=== PATIENT | female | born 1975 | race Caucasian/White ===

== ENCOUNTER 2021-04-24 09:29 | Outpatient (CLI) | payer OTHER, SELFPAY ==
--- NOTE | 2021-04-24 09:36 | MM_ITS ---
WS: [id number] BILATERAL DIGITAL SCREENING MAMMOGRAPHY WITH CAD CLINICAL INFORMATION: SCREENING HISTORY: Screening mammogram. No current complaints. COMPARISON: TECHNIQUE: Bilateral CC and MLO views. FINDINGS: Scattered fibroglandular densities bilaterally. No suspicious focal mass, asymmetry, calcifications, or architectural distortion. No evidence of malignancy. MM/[place] [id number] IMPRESSION: BI-RADS: 1-Negative FOLLOW UP: 1 Year Follow-up Recommend return to annual screening mammography.
== END 2021-04-24 09:30 | disposition home or self-care (01) ==
LOC: RADSHAW 09:34
PROVIDERS: Family Provider Family Medicine; PCP Family Medicine; Visit Provider Family Medicine
DX: Z12.31 Encounter for screening mammogram for malignant neoplasm of breast (principal)
CPT/HCPCS: 77067

== ENCOUNTER 2021-09-27 08:29 | Outpatient (CLI) | payer OTHER, SELFPAY | END 2021-09-27 08:30 | disposition home or self-care (01) | PROVIDERS: PCP Family Medicine; Visit Provider Family Medicine | DX: R50.9 Fever, unspecified (principal) | CPT/HCPCS: 36415; 87040 ==

== ENCOUNTER 2021-12-27 12:21 | Outpatient (CLI) | payer OTHER, SELFPAY ==
--- NOTE | 2021-12-27 | XR_ITS ---
WS: [id number] Exam: XR chest 2V* [id number] Date/Time of Exam: 12/27/2021 12:29 PM Reason For Exam: COUGH Comparison 12/27/2021. Findings: The lungs are clear and fully expanded. Costophrenic angles are sharp. No infiltrates. Bronchovascula r relief appears normal. Cardiac silhouette is unremarkable. Bony elements are intact. XR/XR chest 2V* [id number] IMPRESSION: Unremarkable chest radiograph.
== END 2021-12-27 12:22 | disposition home or self-care (01) ==
LOC: RAD 12:24
PROVIDERS: PCP Family Medicine; Visit Provider Family Medicine
DX: R05.9 Cough, unspecified (principal)
CPT/HCPCS: 71046

== ENCOUNTER 2022-04-24 12:51 | Outpatient (CLI) | payer OTHER, SELFPAY ==
--- NOTE | 2022-04-24 13:04 | MM_ITS ---
WS: [id number] BILATERAL 3D TOMOSYNTHESIS DIGITAL SCREENING MAMMOGRAPHY WITH CAD CLINICAL INFORMATION: SCREENING HISTORY: Screening mammogram. No current complaints. COMPARISON: April 24, 2021 TECHNIQUE: Bilateral CC and MLO views. FINDINGS: Scattered fibroglandular densities bilaterally. No suspicious focal mass, asymmetry, calcifications, or architectural distortion. No evidence of malignancy. MM/[place] [id number] IMPRESSION: BI-RADS: 1-Negative FOLLOW UP: 1 Year Follow-up Recommend return to annual screening mammography.
== END 2022-04-24 12:52 | disposition home or self-care (01) ==
LOC: RAD 12:52
PROVIDERS: PCP Family Medicine; Visit Provider Family Medicine
DX: Z12.31 Encounter for screening mammogram for malignant neoplasm of breast (principal)
CPT/HCPCS: 77063; 77067

== ENCOUNTER → 2023-03-16 12:25 | Outpatient (BNVA) | payer OTHER, SELFPAY | PROVIDERS: PCP Family Medicine; Visit Provider Family Medicine | DX: E03.9 Hypothyroidism, unspecified (principal); N92.6 Irregular menstruation, unspecified; R10.2 Pelvic and perineal pain | CPT/HCPCS: 80053; 83001; 84439; 84443; 84702; 85025; 87624 ==

== ENCOUNTER 2023-03-23 13:58 | Outpatient (CLI) | payer OTHER, SELFPAY ==
--- NOTE | 2023-03-23 14:00 | US_ITS ---
WS: [id number] US pelv w/transvag [id number] HISTORY: Abnormal uterine bleeding, pelvic pain COMPARISON: None available. Uterus: 10.3 cm x 5.9 cm x 5.0 cm. Enlarged anteverted uterus. No fibroid or mass. Endometrium: Mildly thickened heterogeneous endometrium. No mass or increased vascularity. 1.7 cm. Right ovary: 3.6 cm x 4.2 cm x 3.5 cm. Normal size and vascularity, no cystic or solid masses. RIGHT ovarian cyst 2.9 x 3.0 x 2.9 cm. Left ovary: 3.3 cm x 3.0 cm x 2.1 cm. Normal size and vascularity, no cystic or solid masses. No free fluid in the cul-de-sac. US/US pelv w/transvag [id number] IMPRESSION: 1. Mildly heterogeneous endometrium. Normal size. No mass or increased vascula rity. 2. Mildly enlarged uterus. 3. No fibroids. 4. Small RIGHT ovarian cyst.
== END 2023-03-23 13:59 | disposition home or self-care (01) ==
LOC: RAD 14:03
PROVIDERS: PCP Family Medicine; Visit Provider Family Medicine
DX: N93.9 Abnormal uterine and vaginal bleeding, unspecified (principal); R10.2 Pelvic and perineal pain; N85.2 Hypertrophy of uterus; N83.201 Unspecified ovarian cyst, right side
CPT/HCPCS: 76830; 76856; 80053; 83001; 84439; 84443; 84702; 85025; 87624

== ENCOUNTER 2023-04-30 08:14 | Outpatient (CLI) | payer OTHER, SELFPAY ==
--- NOTE | 2023-04-30 08:30 | MM_ITS ---
WS: [id number] SCREENING DIGITAL TOMOSYNTHESIS MAMMOGRAM WITH CAD HISTORY: SCREENING COMPARISON: 04/24/2022, 04/24/2021. Bilateral CC and MLO with tomosynthesis views submitted. Synthetic mammography reviewed. Computer aid ed detection analyzed. Breast composition: There are scattered areas of fibroglandular density. No suspicious masses, microc alcifications or architectural distortion. MM/[place] [id number] IMPRESSION: BI-RADS: 1-Negative FOLLOW UP: 1 Year Follow-up
== END 2023-04-30 08:15 | disposition home or self-care (01) ==
LOC: RAD 08:25
PROVIDERS: PCP Family Medicine; Visit Provider Family Medicine
DX: Z12.31 Encounter for screening mammogram for malignant neoplasm of breast (principal)
CPT/HCPCS: 77063; 77067

== ENCOUNTER 2024-05-02 08:00 | Outpatient (CLI) | payer OTHER, SELFPAY ==
--- NOTE | 2024-05-02 08:04 | MM_ITS ---
WS: [id number] SCREENING DIGITAL TOMOSYNTHESIS MAMMOGRAM WITH CAD HISTORY: SCREENING COMPARISON: 04/30/2023, 04/24/2022 and 04/24/2021 Bilateral CC and MLO with tomosynthesis views submitted. Synthetic mammography reviewed. Computer aid ed detection analyzed. Breast composition: There are scattered areas of fibroglandular density. No suspicious masses, microc alcifications or architectural distortion. Benign calcification in the anterior LEFT breast. MM/[place] [id number] IMPRESSION: BI-RADS: 2-Benign FOLLOW UP: 1 Year Follow-up
== END 2024-05-02 08:01 | disposition home or self-care (01) ==
PROVIDERS: PCP Family Medicine; Visit Provider Family Medicine
DX: Z12.31 Encounter for screening mammogram for malignant neoplasm of breast (principal)
CPT/HCPCS: 77063; 77067

== ENCOUNTER 2025-02-20 06:14 | Outpatient (CLI) | payer OTHER, SELFPAY ==
--- NOTE | 2025-02-20 06:34 | USR_ITS ---
PROCEDURE INFORMATION: Exam: US Pelvis, Complete, Non-Obstetric Exam date and time: 02/20/2025 6:37 AM Age: 49 years old Clinical indication: Condition or disease; Other: Menometorrhagia; Additional info: Menometorrhagia, transvaginal US if needed for better visualization TECHNIQUE: Imaging protocol: Transabdominal pelvic nonobstetric ultrasound. Complete exam. Real time ultrasound with image documentation. COMPARISON: US pelv w/transvag [id number] 03/23/2023 2:21 PM FINDINGS: Uterus: Uterus is normal. Small cervical cysts. Endometrial stripe is heterogeneous. It is 11 mm in thickness. Right ovary/adnexa: Ovary is normal. No mass. Normal blood flow. Left ovary/adnexa: Obscured. Intraperitoneal space: No intraperitoneal fluid. Urinary bladder: Normal. US/US pelv w/transvag [id number] IMPRESSION: Slightly thickened and heterogeneous endometrium without focal abnormality.
== END 2025-02-20 06:15 | disposition home or self-care (01) ==
PROVIDERS: PCP Family Medicine; Visit Provider Family Medicine
DX: N92.1 Excessive and frequent menstruation with irregular cycle (principal); N88.8 Other specified noninflammatory disorders of cervix uteri
CPT/HCPCS: 76830; 76856

== ENCOUNTER 2025-05-03 07:57 | Outpatient (CLI) | payer BC, OTHER, SELFPAY ==
--- NOTE | 2025-05-03 08:02 | MM_ITS ---
WS: [id number] BILATERAL SCREENING DIGITAL TOMOSYNTHESIS MAMMOGRAM WITH CAD HISTORY: SCREENING COMPARISON: 05/02/2024, 04/30/2023 and 04/24/2022 Bilateral CC and MLO views with tomosynthesis and synthetic mammography submitted. Computer aided detection analyzed. Breast composition: There are scattered areas of fibroglandular density. No suspicious masses, microcalcifications or architectural distortion. Benign calcification anterior LEFT breast. MM/MM scr [place] tomosynthesis [id number] IMPRESSION: BI-RADS: 2 - Benign. FOLLOW UP: 1 Year Follow-up
== END 2025-05-03 07:58 | disposition home or self-care (01) ==
LOC: RAD 07:59
PROVIDERS: PCP Family Medicine; Visit Provider Family Medicine
DX: Z12.31 Encounter for screening mammogram for malignant neoplasm of breast (principal); R92.323 Mammographic fibroglandular density, bilateral breasts; R92.1 Mammographic calcification found on diagnostic imaging of breast
CPT/HCPCS: 77063; 77067

== ENCOUNTER 2025-06-06 05:47 | Day surgery (SDC) | payer BC, OTHER, SELFPAY ==
[2025-06-06] VITALS (9 sets, daily range): BP systolic 107–156; BP diastolic 59–111; PULSE 62–91; RESP 12–20; TEMP 36.1–36.6; O2SAT 96–99; BMI 32.9
--- NOTE | 2025-06-06 04:41 | P.HP_ITS ---
Same Day Surgery H&P Indication for Procedure/HPI DATE OF PROCEDURE: June 06, 2025 CHIEF COMPLAINT/INDICATIONFOR SURGICAL PROCEDURE: 49 y.o. with irregular and heavy periods x two years PREOP DIAGNOSIS: abnormal uterine bleeding PLANNED PROCEDURE: Operation Date: 06/06/25 07:00 Proposed Procedures p Hysteroscopy w/ Endometrial Sampling [id number] 37374, R93.89(Not Applicable) - Jcarlos Ortega MD s POSSIBLE Endometrial Poylpectomy(Not Applicable) - Jcarlos Ortega MD Medications/Allergies* Home Medications ?Medication ?Instructions ?Recorded ?Confirmed ?Type metoprolol succinate 25 mg 25 mg PO DAILY 06/05/2502/24 History tablet,extended release 24 hr Allergies/Adverse Reactions Allergy/AdvReac Type Severity Reaction Status Date / Time No Known Allergies Allergy Verified 04/19/25 08:41 Pertinent History/Comorbid Conditions* Medical History (Updated 02/27/25 @ 21:40 by Ho Zamudio MD) History of colonic polyps Tubular adenoma Surgical History (Updated 03/16/23 @ 12:54 by Ho Zamudio MD) Hx of wisdom tooth extraction Family History (Updated 04/19/25 @ 08:29 by Mady Edward CMA) Colon cancer Mother Ovarian cancer Grandmother Uterine cancer Grandmother Thyroid disease Mother Denies family history of Diabetes Heart disease Hyperlipidemia Breast cancer Hypertension Stroke Social History Smoking and tobacco/nicotine status: never used tobacco/nicotine Alcohol intake: never Substance/Drug Use: never 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
[2025-06-06 06:16] LABS: OR HCG Qualitative Urine Negative (Negative)
--- NOTE | 2025-06-06 06:36 | W.PM.OPSUD ---
Surgery/Procedure H&P Update DATE OF PROCEDURE: June 06, 2025 DATE H&P PERFORMED: 06/06/25 H&P UPDATE INFORMATION: I have reviewed H&P completed within last 30 days, I have examined patient prior to procedure and No changes to prior documentation PREOP DIAGNOSIS: abnormal uterine bleeding PLANNED PROCEDURE: Operation Date: 06/06/25 07:00 Proposed Procedures p Hysteroscopy w/ Endometrial Sampling 18452 41229, R93.89(Not Applicable) - Jcarlos Ortega MD s POSSIBLE Endometrial Poylpectomy(Not Applicable) - Jcarlos Ortega MD
--- NOTE | 2025-06-06 06:40 | ANES.PREANE2 ---
Pre-Anesthetic Assessment Height/Weight: Height 1.63 m Weight 87.09 kg Temp Pulse Resp BP Pulse Ox O2 Del Method 98 F 71 18 156/111 99 Room Air 06/06/25 06:05 06/06/25 06:05 06/06/25 06:05 06/06/25 06:05 06/06/25 06:05 06/06/25 06:05 Preop Diagnosis: abnormal uterine bleeding Operation Date: 06/06/25 07:00 Proposed Procedures p Hysteroscopy w/ Endometrial Sampling [id number] 14222, R93.89(Not Applicable) - Jcarlos Ortega MD s POSSIBLE Endometrial Poylpectomy(Not Applicable) - Jcarlos Ortega MD Familial anesthetic complications: None Was Beta Sánchez taken within 24 hours: N/A Was Clonidine taken within 24 hours: N/A Last intake: Intake Last Liquid Date 06/05/25 Last Liquid Time 20:30 Last Solid Date 06/05/25 Last Solid Time 18:30 Social No alcohol and No tobacco Exam alert, oriented x 3, clear to auscultation bilaterally and regular rate & rhythm Airway Mallampati: Class II Dentition: full CV/HEM Hypertension Anesthetic Plan ASA status: 2 Anesthesia: General Risk of > 500 ml blood loss (7ml/kg in children): No Medications/Allergies Home Medications ?Medication ?Instructions ?Recorded ?Confirmed ?Last Taken ?Type metoprolol succinate 25 mg 25 mg PO DAILY 06/05/25 06/06/25 06/06/25 05:00 History tablet,extended release 24 hr Allergies Allergy/AdvReac Type Severity Reaction Status Date / Time No Known Allergies Allergy Verified 04/19/25 08:41 Current Medications Generic Name Dose Route Start Last Admin Trade Name Freq PRN Reason Stop Dose Admin Sodium Chloride 1,000 mls @ 30 mls/hr 06/06/25 06:00 06/06/25 06:18 Sodium Chloride 0.9% IV 06/07/25 05:59 30 mls/hr .Q24H ANNA Administration PFSH Anesthesia Medical History History of colonic polyps Tubular adenoma Surgical History Hx of wisdom tooth extraction Family History Mother Colon cancer Thyroid disease Grandmother Uterine cancer Ovarian cancer Denies family history of Diabetes Heart disease Hyperlipidemia Breast cancer Hypertension Stroke Social History Smoking and tobacco/nicotine status: never used tobacco/nicotine Alcohol intake: never Substance/Drug Use: never 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
--- NOTE | 2025-06-06 07:45 | P.OP_ITS ---
Operative Report Date of procedure: June 06, 2025 Pre-op diagnosis: abnormal uterine bleeding Post-op diagnosis: same Post-op findings: normal endometrial cavity No polyps / fibroids small amount of endometrial tissue Procedure done: hysteroscopy Curettage of uterus Implants: none Specimens removed/disposition: endometrial curettings Surgeon: Jcarlos Ortega MD Anesthesia: MAC Estimated blood loss (mL): 0 Complications: none Findings: see above Condition: stable Disposition: PACU Brief History: 49 y.o. with abnormal uterine bleeding Procedure: Informed consent signed. Patient was taken to the operating room. Anesthesia was induced. Patient was placed in dorsolithotomy position, prepped and draped for hysteroscopy. A bivalve speculum was placed in the vagina. The anterior lip of the cervix was grasped with a sharp-toothed tenaculum. The cervix was serially dilated with Hegar dilators. . A hysteroscope was placed into the endometrial cavity. The endometrial cavity was seen to be normal. There were no polyps or fibroids. There was a small amount of endometrial tissue. The hysteroscope was then chaz champ. Endometrial curettage was done with a sharp curette. Endometrial tissue was sent to pathology. The sharp-toothed tenaculum was removed. There was no bleeding from the endometrial cavity or cervix. The patient was then placed supine and awakened and taken to the PACU. Postop condition: stable EBL: none Sponge and instruments counts were normal x 2 Complications: none
--- NOTE | 2025-06-06 08:40 | ANE.PACU2 ---
Inpatient post-anesthesia follow up: Airway intact: Yes Vital signs: Temperature 97.8 F Pulse Rate 62 Respiratory Rate 16 Blood Pressure 107/78 Pulse Oximetry 98 Oxygen Delivery Me thod Room Air Oxygen Flow Rate Fraction of Inspir ed Oxygen Hydration adequate: Yes Nausea and vomiting: No Pain level: 1 Mental status: Baseline
== END 2025-06-06 08:35 | disposition home or self-care (01) ==
PROVIDERS: PCP Family Medicine; Visit Provider Obstetrics & Gynecology
PROC: 0UJD8ZZ Inspection of Uterus and Cervix, Via Natural or Artificial Opening Endoscopic (ICD-10-PCS; CPT 58555; principal; 2025-06-06 07:00)
DX: N93.9 Abnormal uterine and vaginal bleeding, unspecified (principal); I10 Essential (primary) hypertension
CPT/HCPCS: 58558; 81025; 88305; J2250; J2704; J3010; J7030; J9999